=== PATIENT | female | born 1950 | race Caucasian/White ===

== ENCOUNTER 2019-05-10 13:48 | Outpatient (CLI) | payer MEDICARE, SELFPAY ==
[2019-05-14 15:08] LABS: H pylori Ag Stool Not Detected (Not Detected)
== END 2019-05-10 13:49 | disposition home or self-care (01) ==
PROVIDERS: PCP Family Medicine; Visit Provider Family Medicine
DX: R10.9 Unspecified abdominal pain (principal)
CPT/HCPCS: 87338

== ENCOUNTER 2019-07-24 12:31 | Outpatient (CLI) | payer MEDICARE, SELFPAY ==
--- NOTE | ~2019-07-24 | XR_ITS ---
EXAMINATION: XR knee RT 3V DATE: 07/24/2019 13:25 INDICATION: Chronic posterior predominant generalized right knee pain. TECHNIQUE: Weight bearing anteroposterior, sunrise, and flexed lateral views of the right knee were o btained COMPARISON: 11/24/2008 FINDINGS: Alignment is normal. No fracture. Tricompartmental osteoarthritis at the right knee with interval pr ogression of now mild to moderate joint space narrowing in the medial compartment and increase in siz e of moderate-sized marginal osteophytes at the patellofemoral compartment. Minimal change in small m arginal osteophytes at the lateral compartment. New small loose osteochondral body at the suprapatell ar pouch. No joint effusion. Soft tissues are unremarkable. IMPRESSION: 1. Progression of mild to moderate medial compartment predominant tricompartmental osteoarthritis at the right knee. Reviewed, dictated and finalized at location A. IMPRESSION: 1. Progression of mild to moderate medial compartment predominant tricompartmen edilia osteoarthritis at the right knee.
--- NOTE | ~2019-07-24 | XR_ITS ---
EXAMINATION: XR knee LT 3V DATE: 07/24/2019 13:25 INDICATION: Left knee pain. TECHNIQUE: 3 views of left knee were obtained. COMPARISON: Left knee radiographs 02/23/2017 FINDINGS: Bone alignment is normal. No fracture. There is moderate osteoarthritis of medial and terry lofemoral compartments and mild osteoarthritis of lateral compartment. No knee joint effusion. IMPRESSION: 1. Moderate left knee osteoarthritis. Reviewed, dictated and finalized at location A.
== END 2019-07-24 12:32 | disposition home or self-care (01) ==
LOC: CHSIMG 12:36
PROVIDERS: PCP Nurse Practitioner; Visit Provider Nurse Practitioner
DX: M25.561 Pain in right knee (principal)
CPT/HCPCS: 73562

== ENCOUNTER 2019-08-24 00:30 | Outpatient (CLI) | payer MEDICARE, SELFPAY ==
[2019-08-24 18:32] LABS: SARS-CoV-2 RNA PCR Negative
== END 2019-08-24 00:31 | disposition home or self-care (01) ==
LOC: ANHCOVIDDT 00:31
PROVIDERS: Visit Provider Internal Medicine Gastroenterology
DX: Z01.812 Encounter for preprocedural laboratory examination (principal); Z11.59 Encounter for screening for other viral diseases
CPT/HCPCS: 87635; C9803; U0003

== ENCOUNTER 2019-08-27 02:10 | Day surgery (SDC) | payer MEDICARE, SELFPAY ==
[2019-08-20 10:17] VITALS: BMI 44.5
[2019-08-27 07:14] VITALS: BP 158/93; PULSE 68; RESP 20; TEMP 36.4; O2SAT 97
[2019-08-27] MEDS: LACTATED RINGERS 1,000 ML 150 ML IV CONT (07:31)
--- NOTE | 2019-08-27 08:23 | WPDANESEPPF ---
Anes - Initial Pre Proc Eval Procedure: Operation Date: 08/27/19 09:15 Proposed Procedures p Esophagogastroduodenoscopy - Garth Miller MD Date/Time: 08/27/19 08:23 Surgeon: Garth Miller MD Pre Op Diagnosis: GERD Patient Data Age: 69 Gender: F Height: 5 ft 1 in Weight: 106.9 kg Last Vital Signs Temp 97.5 F L 08/27/19 07:14 Pulse 68 08/27/19 07:14 Resp 20 08/27/19 07:14 BP 158/93 H 08/27/19 07:14 Pulse Ox 97 08/27/19 07:14 Allergies Allergy/AdvReac Type Severity Reaction Status Date / Time codeine AdvReac Nausea and Verified 08/27/19 07:17 Vomiting Home Medications Medication Instructions Recorded Confirmed Type fluticasone propionate 50 1 spray NASAL DAILY 04/10/19 08/20/19 History mcg/actuation nasal spray,suspension metoprolol tartrate 50 mg tablet 50 mg PO Q12H 04/10/19 08/27/19 History simethicone 250 mg capsule 250 mg PO DAILY PRN #30 cap 05/15/19 08/20/19 Rx omeprazole 20 mg tablet,delayed 20 mg PO BID #60 tablet 07/31/19 08/27/19 Rx release albuterol sulfate [ProAir HFA] INHALATION 08/20/19 History cetirizine [Zyrtec] 10 mg PO DAILY 08/20/19 08/20/19 History cyclobenzaprine 5 mg PO DAILY 08/20/19 08/20/19 History glucosamine sulfate [Glucosamine] 500 mg PO BID 08/20/19 08/27/19 History hydrochlorothiazide 12.5 mg PO DAILY 08/20/19 08/27/19 History Patient hx anesthesia problems: none Family hx anesthesia problems: none PMFSH Past Medical History Medical History (Updated 08/27/19 @ 08:20 by Victorino Arevalo MD) Asthma Benign hypertension Colon cancer screening Hyperlipidemia Malpositioned IUD Obesity, Class II, BMI 35-39.9 Surgical History Surgical History (Updated 04/10/19 @ 10:35 by Marie Kerr MA) H/O cataract removal with insertion of prosthetic lens History of cholecystectomy Family History Family History (Updated 04/10/19 @ 10:31 by Marie Kerr MA) Mother Benign hypertension Cerebrovascular accident Sibling Lung cancer Social History Social History (Updated 04/10/19 @ 10:32 by Marie Kerr MA) Smoking status: Never smoker Second hand tobacco smoke exposure: Yes Alcohol intake: never Substance use: never Substance use type: does not use Gender identity (if verbalized by the patient): Female Spiritual care concerns: No Anes - Eval Final PreProcedure Day of Procedure 08/27/19 08:23 Patient weight: morbidly obese Heart: regular rate and rhythm Lungs: clear to auscultation Airway: Mallampati scale class III Neurological: alert and oriented Last oral intake: >/= 8 hours ASA classification: IV Emergent: no Anesthetic plan: proceed Anesthesia type and monitoring: general GIVS and standard monitoring Informed Consent: The patient's anesthetic plan and its attendant risks and benefits were discussed with the patient/family/POA. Questions were solicited and answers provided to the satisfaction of the patient/family/POA.
--- NOTE | 2019-08-27 08:35 | WPDHPUPDATE1 ---
History and Physical Update Update Date/Time: 08/27/19 08:35 History and Physical has been reviewed, including an updated exam of the patient. There are NO changes in the patient's condition. Risks, benefits, and alternatives have been discussed and questions answered. Patient agrees to proceed with procedure.
[2019-08-27 08:57] VITALS: BP 140/77; PULSE 68; RESP 21; O2SAT 98
[2019-08-27 09:07] VITALS: BP 141/77; PULSE 65; RESP 16; O2SAT 99
[2019-08-27 09:17] VITALS: BP 155/83; PULSE 63; RESP 12; O2SAT 98
== END 2019-08-27 09:34 | disposition home or self-care (01) ==
PROVIDERS: Absent Provider Internal Medicine Gastroenterology; Visit Provider Internal Medicine Gastroenterology
PROC: 0DJ08ZZ Inspection of Upper Intestinal Tract, Via Natural or Artificial Opening Endoscopic (ICD-10-PCS; CPT 43235; principal; 2019-08-27 09:15)
DX: K21.9 Gastro-esophageal reflux disease without esophagitis (principal); K44.9 Diaphragmatic hernia without obstruction or gangrene; K29.50 Unspecified chronic gastritis without bleeding; K31.7 Polyp of stomach and duodenum; J45.909 Unspecified asthma, uncomplicated; I10 Essential (primary) hypertension; E78.5 Hyperlipidemia, unspecified; E66.01 Morbid (severe) obesity due to excess calories; Z68.41 Body mass index [BMI] 40.0-44.9, adult
CPT/HCPCS: 43239; 87635; 88305; C9803; J2001; J2704; J7120; U0003

== ENCOUNTER 2021-07-09 08:08 | Outpatient (CLI) | payer MEDICARE, SELFPAY ==
--- NOTE | ~2021-07-09 | MM_ITS ---
EXAMINATION: MM screening cesar BI w noe HISTORY: Screening mammogram TECHNIQUE: Craniocaudal and mediolateral oblique 3-D tomosynthesis images were obtained and synthetic 2-D images were generated. CAD analysis was submitted and interpreted. COMPARISON: No prior mammogram is available for comparison at this institution. BREAST PARENCHYMAL COMPOSITION: There are scattered areas of fibroglandular density. FINDINGS: Benign appearing stable intramammary lymph node in the axillary tail areas bilaterally. The re is no evidence of suspicious mass, calcification, or architectural distortion to suggest malignanc y in either breast. There has been no suspicious interval change. IMPRESSION: 1. No mammographic evidence of malignancy. 2. Recommend routine screening mammography in one year. BI-RADS Category 2: Benign finding(s). Reviewed, dictated and finalized at location A.
== END 2021-07-09 08:09 | disposition home or self-care (01) ==
LOC: CHSIMG 08:10
PROVIDERS: PCP Nurse Practitioner; Visit Provider Nurse Practitioner
DX: Z12.31 Encounter for screening mammogram for malignant neoplasm of breast (principal)
CPT/HCPCS: 77063; 77067

== ENCOUNTER 2021-08-20 14:20 | Outpatient (CLI) | payer MEDICARE, SELFPAY ==
--- NOTE | ~2021-08-20 | XR_ITS ---
EXAMINATION: XR chest 2V 08/20/2021 14:41 INDICATION: Acute cough PROCEDURE: 2 view chest COMPARISON: No prior studies for comparison. FINDINGS: The lungs are clear. The cardiomediastinal silhouette is within normal limits. There are no pleural effusions. There is no pneumothorax suspected. IMPRESSION: 1: NO ACUTE CARDIOPULMONARY DISEASE. Reviewed, dictated and finalized at location A.
== END 2021-08-20 14:21 | disposition home or self-care (01) ==
LOC: CHSIMG 14:26
PROVIDERS: PCP Nurse Practitioner
DX: R05.1 Acute cough (principal)
CPT/HCPCS: 71046

== ENCOUNTER 2022-10-19 12:35 | Outpatient (CLI) | payer MEDICARE, MEDICAID, SELFPAY ==
--- NOTE | ~2022-10-19 | DEXA_ITS ---
Bone Density Report Name: JOHNNIE CHOI Age: 72 Sex: Female Ethnicity: White Date of : 1950 Indication: postmenopausal; screening for osteoporosis; height loss; cancer; Referring Provider: FELICITAS, ISRAEL Celis Study: Bone densitometry was performed. Exam Date: October 19, 2022 Accession number: [id number] Bone Density: Region BMD T-score Z-score Classification AP Spine(L1, L2, L3) 0.781 -2.2 0.1 Osteopenia Femoral Neck (Left) 0.627 -2.0 0.0 Osteopenia Total Hip (Left) 0.937 0.0 1.7 Normal Femoral Neck (Right) 0.629 -2.0 0.1 Osteopenia Total Hip (Right) 0.914 -0.2 1.5 Normal Femoral Neck Mean 0.628 -2.0 0.0 Osteopenia Total Hip Mean 0.926 -0.1 1.6 Normal World Health Organization criteria for BMD impression classify patients as: Normal (T-score at or above -1.0), Osteopenia (T-score between -1.0 and -2.5), or Osteoporosis (T-score at or below -2.5). 10-year Fracture Risk(1): Major Osteoporotic Fracture 11% Hip Fracture 2.3% Reported Risk Factors: [place] (), Neck BMD=0.627, BMI=43.1 (1) FRAX(R) Version 3.08. Fracture probability calculated for an untreated patient. Fracture probability may be lower if the patient has received treatment. Clinical Information Provided by Patient: Has used the following medications: Vitamin D, Calcium Has the following medical conditions: Cancer Patient maximum height was 62 Menopause Age: 63 No regular weight bearing exercise Does not regularly consume dairy products Drinks caffeinated beverages Onset of menses at age 13 Number of children 6 Impression: The patient has low bone mass, based on the Total Spine T-score. Discussion: BONE DENSITY IS LOW AT ONE OR MORE SKELETAL SITES. This patient's lowest T-score is low at one or more skeletal sites. It meets the World Health Organization's (WHO) criteria for ?low bone mass? (T-score between -1.0 and -2.5). The patient's 10-year risk of fracture as calculated by FRAX is less than the threshold where pharmacological therapy is recommended by the National Osteoporosis Foundation (NOF). However, all treatment decisions require clinical judgment and consideration of individual patient factors, including patient preferences, comorbidities, previous drug use, risk factors not captured in the FRAX model (e.g., frailty, falls, vitamin D deficiency, increased bone turnover, interval significant decline in bone density) and possible under or overestimation of fracture risk by FRAX. The patient should follow a healthful lifestyle (good nutrition with adequate calcium and vitamin D, and appropriate weight-bearing exercise). Follow-Up: Consider repeating this study in 2 to 3 years to reassess this patient's status, or sooner if there is some new clinical indication.
--- NOTE | ~2022-10-19 | MM_ITS ---
EXAMINATION: MM screening cesar BI w noe HISTORY: Screening mammogram TECHNIQUE: Craniocaudal and mediolateral oblique 3-D tomosynthesis images were obtained and synthetic 2-D images were generated. CAD analysis was submitted and interpreted. COMPARISON: 07/09/2021 bilateral screening mammogram BREAST PARENCHYMAL COMPOSITION: There are scattered areas of fibroglandular density. FINDINGS: No change of benign appearing intramammary lymph node, posterior upper outer left breast. T here is no evidence of suspicious mass, calcification, or architectural distortion to suggest maligna ncy in either breast. There has been no suspicious interval change. IMPRESSION: 1. No mammographic evidence of malignancy. 2. Recommend routine screening mammography in one year. BI-RADS Category 1: Negative Reviewed, dictated and finalized at location A.
== END 2022-10-19 12:36 | disposition home or self-care (01) ==
LOC: CHSIMG 12:37
PROVIDERS: PCP Nurse Practitioner; Visit Provider Nurse Practitioner
DX: Z12.31 Encounter for screening mammogram for malignant neoplasm of breast (principal); Z78.0 Asymptomatic menopausal state; M85.89 Other specified disorders of bone density and structure, multiple sites
CPT/HCPCS: 77063; 77067; 77080

== ENCOUNTER 2023-05-22 10:07 | Outpatient (CLI) | payer MEDICARE, MEDICAID, SELFPAY ==
--- NOTE | 2023-05-22 10:38 | ECHO_ITS ---
Patient Info Name: Jackie Heart Age: 72 years : 1950 Gender: Female Ht: 61 in Wt: 224 lbs BSA: 2.15 m2 HR: 75 bpm BP: 163 / 93 mmHg Heart Rhythm: Sinus Rhythm Technical Quality: Good Exam Date: 05/22/2023 10:29 AM Exam Location: Echo Lab Patient Status: Outpatient Admit Date: 05/22/2023 Staff Ordering Physician: Trevon, Ifeanyi Crain APRN Outsewer: Rylee Parker RDCS Attending Provider: Trevon, Ifeanyi Crain APRN Referring Physician: Trevon DE GUZMAN; Exam Type: CA echo doppler color flow Study Info Indications - sob Complete two-dimensional, color flow and Doppler transthoracic echocardiogram is performed. Summary 1. Complete two-dimensional, color flow and Doppler transthoracic echocardiogram is performed. 2. Left ventricular chamber dimension is normal. 3. Left ventricular systolic function is normal, estimated at 60-65%. 4. The left ventricular diastolic function is grade I diastolic dysfunction. 5. E/e' 10 is mildly elevated. 6. Left atrial chamber dimension is mildly enlarged. 7. There is mild aortic valve sclerosis. 8. No pulmonary hypertension, estimated pulmonary arterial systolic pressure is 26 mmHg. Left Ventricle E/e' 10 is mildly elevated. Left ventricular chamber dimension is normal. Left ventricular systolic function is normal, estimated at 60-65%. The left ventricular diastolic function is grade I diastolic dysfunction. Right Ventricle Right ventricular systolic function is normal and with normal TAPSE 1.9 cm. Right ventricular chamber dimension is normal. Left Atria Left atrial chamber dimension is mildly enlarged. Right Atria Right atrial chamber dimension is normal. Aortic Valve The aortic valve is trileaflet. There is mild aortic valve sclerosis. There is no aortic valve stenosis. There is no aortic valve regurgitation. Pulmonic Valve There is no pulmonic regurgitation. Mitral Valve There is no mitral valve stenosis. There is no mitral valve regurgitation. Tricuspid Valve There is no tricuspid valve regurgitation. No pulmonary hypertension, estimated pulmonary arterial systolic pressure is 26 mmHg. Pericardium/Pleural There is no pericardial effusion. Inferior Vena Cava Normal inferior vena cava with >50% collapse upon inspiration consistent with normal right atrial pressure, 5 mmHg. Aorta The aortic root size at the sinus of Valsalva is normal. Left Ventricular Outflow Tract Name Value Normal LVOT Doppler LVOT Peak Velocity 102 cm/s LVOT Peak Gradient 4 mmHg LVOT Mean Gradient 2 mmHg LVOT VTI 27 cm LVOT VTI/AV VTI Ratio 0.7 Pulmonic Valve Name Value Normal RVOT Doppler RVOT Peak Gradient 2 mmHg PV Doppler PV Peak Velocity 84 cm/s PV Peak Gradient 3 mmHg Mitral Valve
== END 2023-05-22 10:08 | disposition home or self-care (01) ==
LOC: CHSIMG 10:13
PROVIDERS: PCP Nurse Practitioner Family; Visit Provider Nurse Practitioner Family
DX: R06.02 Shortness of breath (principal); I70.0 Atherosclerosis of aorta
CPT/HCPCS: 93306